=== PATIENT | female | born 1960 | race Caucasian/White ===

== ENCOUNTER 2022-05-18 09:37 | Emergency (ER) | payer OTHER ==
[2022-05-18 09:55] VITALS: BP 146/96; PULSE 89; RESP 16; TEMP 98.1; BMI 25.0
== END 2022-05-18 11:47 | disposition home or self-care (01) ==
LOC: FER 09:37
PROC: 0HQ0XZZ Repair Scalp Skin, External Approach (ICD-10-PCS; principal; 2022-05-18)
DX: S01.01XA Laceration without foreign body of scalp, initial encounter (principal); W19.XXXA Unspecified fall, initial encounter
CPT/HCPCS: 70450-TC; 73130-TC-LT-FY; 99284-25